=== PATIENT | female | born 1990 | race Caucasian/White ===

== ENCOUNTER 2016-07-18 23:33 | Emergency (ER) | payer BC, OTHER ==
[~2016-07-18 23:33] MED LIST: Donnatal Elixir 16.2 MG/5 ML UDCUP ONE; Sodium Chloride 0.9% 1,000 ML BAG ONE
[2016-07-19 01:18] LABS: Amphetamine Detected (NotDetected); Barbiturates Screen Not Detected (NotDetected); Benzodiazepine Screen Not Detected (NotDetected); Cocaine Metabolite Screen Not Detected (NotDetected); Medtox Control Line Valid? VALID (VALID); Methadone Not Detected (NotDetected); Methamphetamine Detected (NotDetected); Opiate Screen Not Detected (NotDetected); Oxycodone Screen Not Detected (NotDetected); Phencyclidine (PCP) Not Detected (NotDetected); THC/Cannabinoid Screen Detected (NotDetected); Tricyclic Screen Not Detected (NotDetected)
[2016-07-19 01:19] LABS: Bilirubin Small (Negative); Blood, Urine Trace (Negative); Clarity Slightly Cloudy (Clear); Glucose, Urine (Dipstick) Negative (Negative); Icto Negative (Negative); Leukocyte Negative (Negative); Nitrite Negative (Negative); Protein, Urine (Dipstick) > or equal to 300 mg/dL (Neg-Trace); Specific Gravity, Urine 1.031 (1.002-1.036)
[2016-07-19 01:20] LABS: Bacteria/HPF 1+ HPF (None Seen); Crystals/HPF RARE AMORPH URATES HPF (Negative); Renal Epithelial 0-3 HPF (0-3); Transitional Epithelial 0-3 HPF (0-3); Yeast-All Forms Rare HPF (None Seen)
[2016-07-19 01:24] LABS: ALT (SGPT) 14 U/L (8-55); AST (SGOT) 14 U/L (5-34); Albumin 4.5 g/dL (3.5-5.0); Alkaline Phosphatase 83 U/L (40-150); Anion Gap 16 mmol/L (10-20); BUN (Urea Nitrogen) 13 mg/dL (7.0-18.7); Bilirubin, Total 0.7 mg/dL (0.2-1.2); Calc. Creatinine Clearance 0 mL/min (70-130); Calcium 9.8 mg/dL (7.8-10.44); Carbon Dioxide 20 mmol/L (22-29); Chloride 108 mmol/L (98-107); Estimated GFR-MDRD Greater than 90; Globulin 2.8 g/dL (2.4-3.5); Glucose 113 mg/dL (70-105); Potassium 3.5 mmol/L (3.5-5.1); Protein, Total 7.3 g/dL (6.0-8.3); Sodium 140 mmol/L (136-145)
[2016-07-19 01:26] LABS: Alcohol Less than 10 mg/dL (Less than 10); Lipase 7 U/L (8-78); Salicylate Less than 8.0 mg/dL (15.0-30.0)
[2016-07-19 01:32] LABS: #Basophils 0.1 thou/uL (0.0-0.2); #Eosinphils 0.1 thou/uL (0.0-0.7); #Lymphocytes 2.5 thou/uL (1.20-3.40); #Monocytes 0.7 thou/uL (0.11-0.59); #Neutrophils 7.5 thou/uL (1.40-6.50); %Basophils 0.9 % (0.0-1.0); %Eosinophils 0.6 % (0.0-10.0); %Lymphocytes 22.9 % (21.0-51.0); %Monocytes 6.3 % (0.0-10.0); %Neutrophils 69.3 % (42.0-75.0); Hemoglobin 14.3 g/dL (12.0-16.0); Mean Corpuscular HGB CONC 34.8 g/dL (32.0-36.0); Mean Corpuscular Hemoglobin 30.5 pg (27.0-31.0); Mean Corpuscular Volume 87.8 fl (81.0-99.0); Mean Platelet Volume 10.3 fL (7.4-10.4); Platelet Count 270 thou/uL (130-400); RBC Distribution Width 12.9 % (11.5-14.5); Red Blood Cell (RBC) Count 4.69 mill/uL (4.20-5.40); White Blood Cell (WBC) Count 10.8 thou/uL (4.8-10.8)
[2016-07-19] MEDS ORDERED: Sulfameth/Trimethoprim DS 800-160mg TAB ONE (01:40)
[2016-07-19 01:41] LABS: Acetaminophen Less than 6.0 mcg/mL (6.0-30.0)
[2016-07-19] MEDS ORDERED: Donnatal Elixir 16.2 MG/5 ML UDCUP ONE (01:58)
[2016-07-19] MEDS ORDERED: Lidocaine Viscous Sol 2% 15 ml UD Cup ONE (01:59)
[2016-07-19] MEDS ORDERED: Mag-Al Plus 1200 MG/1200 MG/120 MG/30 ML UDCUP ONE (01:59)
--- NOTE | 2016-07-19 07:33 | RAD ---
PORTABLE CHEST: HISTORY: Mental status change. FINDINGS: Lungs are clear. Heart and mediastinum unremarkable. IMPRESSION: Unremarkable exam. POS: [facility]
== END 2016-07-19 04:29 | disposition home or self-care (01) ==
LOC: MADERS 23:33
DX: F60.7 Dependent personality disorder (principal); E86.0 Dehydration; N39.0 Urinary tract infection, site not specified; F17.210 Nicotine dependence, cigarettes, uncomplicated
CPT/HCPCS: 36415; 71010; 80053; 80306; 80307; 81001; 82150; 83690; 84443; 84702; 85025; 87086; 96360; J7050

== ENCOUNTER 2018-05-26 16:53 | Emergency (ER) | payer BC | END 2018-05-26 17:40 | disposition home or self-care (01) | LOC: MADERS 16:53 | DX: K04.7 Periapical abscess without sinus (principal); K02.9 Dental caries, unspecified; F17.210 Nicotine dependence, cigarettes, uncomplicated; Z79.01 Long term (current) use of anticoagulants | CPT/HCPCS: 99282 ==

== ENCOUNTER 2018-08-09 20:59 | Emergency (ER) | payer BC | END 2018-08-09 21:27 | disposition home or self-care (01) | LOC: MADERS 20:59 | DX: L02.416 Cutaneous abscess of left lower limb (principal); Z71.6 Tobacco abuse counseling; F17.210 Nicotine dependence, cigarettes, uncomplicated | CPT/HCPCS: 99406 ==

== ENCOUNTER 2018-10-17 21:03 | Emergency (ER) | payer BC, SELFPAY | END 2018-10-17 21:28 | disposition home or self-care (01) | LOC: MADERS 21:03 | DX: S49.91XA Unspecified injury of right shoulder and upper arm, initial encounter (principal); F32.9 Major depressive disorder, single episode, unspecified; F41.9 Anxiety disorder, unspecified; F17.210 Nicotine dependence, cigarettes, uncomplicated; Z79.899 Other long term (current) drug therapy; X50.9XXA Other and unspecified overexertion or strenuous movements or postures, initial encounter | CPT/HCPCS: 99281 ==

== ENCOUNTER 2019-10-17 02:29 | Emergency (ER) | payer SELFPAY ==
[2019-10-17] MEDS ORDERED: predniSONE 20 MG TAB ONE (02:51)
[2019-10-17] MEDS ORDERED: Bicillin LA 1.2 MILLION UNITS/2 ML SYRINGE ONE (02:51)
== END 2019-10-17 03:18 | disposition home or self-care (01) ==
LOC: MADERS 02:29
DX: J02.0 Streptococcal pharyngitis (principal); F17.210 Nicotine dependence, cigarettes, uncomplicated; F41.9 Anxiety disorder, unspecified; F32.9 Major depressive disorder, single episode, unspecified; Z79.899 Other long term (current) drug therapy
CPT/HCPCS: 96372; 99282; J0561; J7512

== ENCOUNTER 2020-09-28 09:48 | Emergency (ER) | payer MEDICAID, SELFPAY ==
[2020-09-28 17:48] LABS: SARS-CoV-2 PCR by NAA Not Detected (NotDetected)
== END 2020-09-28 10:25 | disposition home or self-care (01) ==
LOC: MADERS 09:48
DX: O99.891 Other specified diseases and conditions complicating pregnancy (principal); R09.81 Nasal congestion; R10.9 Unspecified abdominal pain; Z20.822 Contact with and (suspected) exposure to COVID-19; Z85.41 Personal history of malignant neoplasm of cervix uteri; O99.332 Smoking (tobacco) complicating pregnancy, second trimester; F17.210 Nicotine dependence, cigarettes, uncomplicated; Z3A.17 17 weeks gestation of pregnancy; Z79.899 Other long term (current) drug therapy
CPT/HCPCS: 99283; U0003; U0005

== ENCOUNTER 2020-12-03 09:21 | Outpatient (CLI) | payer MEDICAID | END 2020-12-03 09:22 | disposition home or self-care (01) | LOC: MADLAB 09:21 | PROVIDERS: ATTEND Family Medicine | DX: O09.893 Supervision of other high risk pregnancies, third trimester (principal) | CPT/HCPCS: 36415; 82951; 82952 ==

== ENCOUNTER 2021-05-24 00:29 | Emergency (ER) | payer MEDICAID, OTHER | END 2021-05-24 01:21 | disposition home or self-care (01) | LOC: MADERS 00:29 | DX: L30.9 Dermatitis, unspecified (principal); F17.210 Nicotine dependence, cigarettes, uncomplicated; Z79.899 Other long term (current) drug therapy | CPT/HCPCS: 99282 ==

== ENCOUNTER 2021-06-09 08:15 | Emergency (ER) | payer OTHER ==
[2021-06-09] MEDS ORDERED: Lidocaine 1%/Epinephrine 1:100K 10 ML VIAL ONE (08:38)
[2021-06-09] MEDS ORDERED: Bupivacaine PF 0.5% 30 ML VIAL ONE (08:38)
== END 2021-06-09 09:31 | disposition home or self-care (01) ==
LOC: MADERS 08:15
DX: K05.10 Chronic gingivitis, plaque induced (principal); K08.89 Other specified disorders of teeth and supporting structures; F17.210 Nicotine dependence, cigarettes, uncomplicated
CPT/HCPCS: 64400; S0020

== ENCOUNTER 2021-06-12 21:54 | Emergency (ER) | payer OTHER | END 2021-06-12 22:35 | disposition home or self-care (01) | LOC: MADERS 21:54 | DX: L02.413 Cutaneous abscess of right upper limb (principal); F17.290 Nicotine dependence, other tobacco product, uncomplicated | CPT/HCPCS: 99283 ==

== ENCOUNTER 2021-06-23 19:00 | Emergency (ER) | payer OTHER ==
[2021-06-23] MEDS ORDERED: Boostrix 0.5 ML (Tdap) VIAL ONE (19:17)
== END 2021-06-23 19:59 | disposition home or self-care (01) ==
LOC: MADERS 19:00
DX: S01.83XA Puncture wound without foreign body of other part of head, initial encounter (principal); F17.290 Nicotine dependence, other tobacco product, uncomplicated; W20.8XXA Other cause of strike by thrown, projected or falling object, initial encounter; Y93.H9 Activity, other involving exterior property and land maintenance, building and construction; Z23 Encounter for immunization; Z85.41 Personal history of malignant neoplasm of cervix uteri; Z79.899 Other long term (current) drug therapy
CPT/HCPCS: 90471; 90715; 99283

== ENCOUNTER 2021-07-31 18:05 | Emergency (ER) | payer OTHER ==
[2021-07-31 18:40] LABS: Bilirubin Small (Negative); Blood, Urine Negative (Negative); Glucose, Urine (Dipstick) Negative (Negative); Ketone, Urine Negative (Negative); Leukocyte Negative (Negative); Nitrite Negative (Negative); Protein, Urine (Dipstick) 30 mg/dL (Neg-Trace); Urobilinogen 0.2 mg/dL (Less than 2)
[2021-07-31 18:44] LABS: Clarity Hazy (Clear); Specific Gravity, Urine 1.046 (1.002-1.036)
[2021-07-31 18:45] LABS: Pregnancy Test - Urine (BHCG) Negative (Negative); Pregu Control Background? CLEAR/WHITE (CLR/WHITE); Pregu Control Bar Appear? YES (CONTROL BAR); Specific Gravity 1.046 (1.002-1.036)
[2021-07-31 18:48] LABS: Bacteria/HPF Rare-Few HPF (None Seen); Mucous/LPF 2+ LPF (<2+); RBC/HPF None Seen HPF (0-3); WBC/HPF None Seen HPF (0-3)
[2021-07-31] MEDS ORDERED: Clindamycin 150 MG CAP ONE (18:56)
[2021-07-31] MEDS ORDERED: Ondansetron ODT 4 MG TAB ONE (18:56)
== END 2021-07-31 19:05 | disposition home or self-care (01) ==
LOC: MADERS 18:05
DX: K04.7 Periapical abscess without sinus (principal); R11.2 Nausea with vomiting, unspecified; F17.290 Nicotine dependence, other tobacco product, uncomplicated
CPT/HCPCS: 81003; 81015; 81025; 99406; Q0162

== ENCOUNTER 2021-08-03 16:23 | Emergency (ER) | payer OTHER | END 2021-08-03 17:30 | disposition home or self-care (01) | LOC: MADERS 16:23 | DX: A08.4 Viral intestinal infection, unspecified (principal); F17.290 Nicotine dependence, other tobacco product, uncomplicated | CPT/HCPCS: 99283 ==

== ENCOUNTER 2021-10-06 13:36 | Emergency (ER) | payer MEDICAID, OTHER ==
[2021-10-06 15:01] LABS: SARS-CoV-2 NAA Rapid Test DETECTED (NotDetected)
== END 2021-10-06 14:06 | disposition home or self-care (01) ==
LOC: MADERS 13:36
DX: U07.1 COVID-19 (principal); F17.290 Nicotine dependence, other tobacco product, uncomplicated; Z85.41 Personal history of malignant neoplasm of cervix uteri
CPT/HCPCS: 99283; U0002

== ENCOUNTER 2022-01-27 14:47 | Emergency (ER) | payer OTHER ==
[2022-01-27 15:25] LABS: Hemoglobin 13.3 g/dL (12.0-16.0)
[2022-01-27 15:34] LABS: BHCG - Serum Negative (NEGATIVE); Pregs Control Background? CLEAR/WHITE (CLR/WHITE); Pregs Control Bar Appear? YES (CONTROL BAR)
== END 2022-01-27 15:53 | disposition home or self-care (01) ==
LOC: MADERS 14:47
DX: N93.9 Abnormal uterine and vaginal bleeding, unspecified (principal); F17.290 Nicotine dependence, other tobacco product, uncomplicated
CPT/HCPCS: 36415; 84703; 85014; 85018; 99284

== ENCOUNTER 2022-02-15 16:37 | Emergency (ER) | payer OTHER ==
[2022-02-15] MEDS ORDERED: Lidocaine 1% (PF) 30 ML VIAL ONE (18:23)
[2022-02-15] MEDS ORDERED: cefTRIAXone\\ROCEPHIN 1 GM VIAL ONE (18:23)
== END 2022-02-15 18:38 | disposition home or self-care (01) ==
LOC: MADERS 16:37
DX: J02.0 Streptococcal pharyngitis (principal); F17.290 Nicotine dependence, other tobacco product, uncomplicated
CPT/HCPCS: 87430; 96372; 99283; J0696; J2001

== ENCOUNTER 2022-05-10 22:34 | Emergency (ER) | payer OTHER ==
[2022-05-10] MEDS ORDERED: Aspirin Chewable 81 MG TAB ONE (23:10)
[2022-05-10 23:12] LABS: BHCG - Serum Negative (NEGATIVE); Pregs Control Background? CLEAR/WHITE (CLR/WHITE); Pregs Control Bar Appear? YES (CONTROL BAR)
[2022-05-10 23:22] LABS: ALT (SGPT) 15 U/L (8-55); AST (SGOT) 12 U/L (5-34); Alkaline Phosphatase 66 U/L (40-110); Anion Gap 15 mmol/L (10-20); BUN (Urea Nitrogen) 15 mg/dL (7.0-18.7); Bilirubin, Total Less than 0.2 mg/dL (0.2-1.2); Calc. Creatinine Clearance 0 mL/min (70-130); Calcium 10.3 mg/dL (7.8-10.44); Carbon Dioxide 22 mmol/L (22-29); Chloride 108 mmol/L (98-107); Estimated GFR 120; Globulin 3.1 g/dL (2.4-3.5); Glucose 155 mg/dL (70-105); Magnesium 2.1 mg/dL (1.6-2.6); Potassium 3.9 mmol/L (3.5-5.1); Protein, Total 7.1 g/dL (6.0-8.3); Sodium 141 mmol/L (136-145)
[2022-05-11 02:02] LABS: Troponin I Less than 0.010 ng/mL (< 0.028)
[2022-05-11 11:20] LABS: Mean Corpuscular HGB CONC 32.4 g/dL (32.0-36.0); Mean Corpuscular Hemoglobin 28.2 pg (27.0-31.0); Mean Platelet Volume 8.6 fL (7.4-10.4); Platelet Count 346 10x3/uL (130-400); RBC Distribution Width 13.1 % (11.5-14.5); Red Blood Cell (RBC) Count 4.61 mill/uL (4.20-5.40); White Blood Cell (WBC) Count 11.2 10x3/uL (4.8-10.8)
[2022-05-11 12:05] LABS: Band 4 % (5-11); Eosinophils 3 % (0-10); Lymphocytes 37 % (21-51); MDiff Complete? YES; Monocytes 8 % (0-10); Neutrophil 47 % (42-75); Platelet Morphology Comment Appears Adequate; RBC Morphology Normal; Reactive Lymphocytes 1 % (0-10)
== END 2022-05-11 02:11 | disposition home or self-care (01) ==
LOC: MADERS 22:34
DX: R07.89 Other chest pain (principal); E11.9 Type 2 diabetes mellitus without complications; E78.00 Pure hypercholesterolemia, unspecified; F17.290 Nicotine dependence, other tobacco product, uncomplicated; Z79.899 Other long term (current) drug therapy
CPT/HCPCS: 71045; 80053; 83735; 83880; 84484; 84703; 85025; 85379; 93005

== ENCOUNTER 2022-05-14 22:36 | Emergency (ER) | payer OTHER ==
[2022-05-14 23:01] LABS: Hemoglobin 12.5 g/dL (12.0-16.0)
[2022-05-14 23:21] LABS: BHCG - Serum Negative (NEGATIVE); Pregs Control Background? CLEAR/WHITE (CLR/WHITE); Pregs Control Bar Appear? YES (CONTROL BAR)
[2022-05-14] MEDS ORDERED: Ibuprofen 800 MG TAB ONE (23:45)
== END 2022-05-14 23:45 | disposition home or self-care (01) ==
LOC: MADERS 22:36
DX: N93.9 Abnormal uterine and vaginal bleeding, unspecified (principal); E11.9 Type 2 diabetes mellitus without complications; E78.5 Hyperlipidemia, unspecified; F17.290 Nicotine dependence, other tobacco product, uncomplicated
CPT/HCPCS: 84703; 85014; 85018; 99284

== ENCOUNTER 2022-06-01 22:41 | Emergency (ER) | payer OTHER ==
[2022-06-01] MEDS ORDERED: Ibuprofen 800 MG TAB ONE (23:23)
== END 2022-06-01 23:35 | disposition home or self-care (01) ==
LOC: MADERS 22:41
DX: S83.91XA Sprain of unspecified site of right knee, initial encounter (principal); E11.9 Type 2 diabetes mellitus without complications; E78.5 Hyperlipidemia, unspecified; F17.290 Nicotine dependence, other tobacco product, uncomplicated; Z79.84 Long term (current) use of oral hypoglycemic drugs; W19.XXXA Unspecified fall, initial encounter

== ENCOUNTER 2022-07-27 23:06 | Emergency (ER) | payer OTHER ==
[2022-07-27] MEDS ORDERED: Dexamethasone 4 MG TAB ONE (23:32)
== END 2022-07-27 23:55 | disposition home or self-care (01) ==
LOC: MADERS 23:06
DX: J03.90 Acute tonsillitis, unspecified (principal)
CPT/HCPCS: 87081; 87430; 99283; J8540

== ENCOUNTER 2022-12-21 12:26 | Emergency (ER) | payer OTHER, SELFPAY ==
[2022-12-21 13:52] LABS: Bilirubin Negative (Negative); Blood, Urine Negative (Negative); Clarity Clear (Clear); Glucose, Urine (Dipstick) Negative (Negative); Ketone, Urine Negative (Negative); Leukocyte Negative (Negative); Nitrite Negative (Negative); Pregnancy Test - Urine (BHCG) Negative (Negative); Pregu Control Background? CLEAR/WHITE (CLR/WHITE); Pregu Control Bar Appear? YES (CONTROL BAR); Protein, Urine (Dipstick) Negative (Neg-Trace); Urobilinogen 0.2 mg/dL (Less than 2); pH, Urine 7.5 (5.0-9.0)
[2022-12-21 13:56] LABS: Bacteria/HPF Rare-Few HPF (None Seen); CAUTI Indications for Culture Pelvic or flank pain; RBC/HPF 0-3 HPF (0-3); WBC/HPF 0-3 HPF (0-3)
[2022-12-21 13:58] LABS: Urine Culture Reflex No No
[2022-12-21] MEDS ORDERED: Cyclobenzaprine 10 MG TAB ONE (14:14)
[2022-12-21] MEDS ORDERED: Lidocaine 4% Patch ONE (14:14)
[2022-12-21] MEDS ORDERED: Ketorolac Tromethamine 30 MG/ML VIAL ONE (14:14)
== END 2022-12-21 15:35 | disposition home or self-care (01) ==
LOC: MADERS 12:26
DX: M54.42 Lumbago with sciatica, left side (principal); E11.9 Type 2 diabetes mellitus without complications; F17.290 Nicotine dependence, other tobacco product, uncomplicated; E78.5 Hyperlipidemia, unspecified; Z79.84 Long term (current) use of oral hypoglycemic drugs; Z79.899 Other long term (current) drug therapy
CPT/HCPCS: 81001; 81025; 85379; 86140; 96372; 99283; J1885

== ENCOUNTER 2023-02-28 18:00 | Emergency (ER) | payer SELFPAY ==
[2023-02-28 19:19] LABS: Bacteria/HPF 1+ HPF (None Seen); Bilirubin Negative (Negative); Blood, Urine Negative (Negative); CAUTI Indications for Culture Pelvic or flank pain; Clarity Hazy (Clear); Glucose, Urine (Dipstick) Negative (Negative); Ketone, Urine Negative (Negative); Leukocyte Negative (Negative); Nitrite Negative (Negative); Protein, Urine (Dipstick) Negative (Neg-Trace); RBC/HPF None Seen HPF (0-3); Specific Gravity, Urine 1.026 (1.005-1.030); Squamous Epithelial 21-50 HPF (0-3); Urobilinogen 0.2 mg/dL (Less than 2); pH, Urine 5.5 (5.0-9.0)
[2023-02-28 19:20] LABS: Pregnancy Test - Urine (BHCG) Negative (Negative); Pregu Control Background? CLEAR/WHITE (CLR/WHITE); Pregu Control Bar Appear? YES (CONTROL BAR); Specific Gravity 1.026 (1.002-1.036); Urine Culture Reflex No No
[2023-02-28 19:38] LABS: #Basophils 0.1 thou/uL (0.0-0.2); #Eosinphils 0.3 thou/uL (0.0-0.7); #Lymphocytes 2.3 thou/uL (1.20-3.40); #Monocytes 0.6 thou/uL (0.11-0.59); #Neutrophils 4.9 thou/uL (1.40-6.50); %Basophils 1.3 % (0.0-1.0); %Eosinophils 3.3 % (0.0-10.0); %Lymphocytes 27.7 % (21.0-51.0); %Monocytes 7.1 % (0.0-10.0); %Neutrophils 60.7 % (42.0-75.0); Hematocrit 42.5 % (36.0-47.0); Hemoglobin 13.4 g/dL (12.0-16.0); Mean Corpuscular HGB CONC 31.6 g/dL (32.0-36.0); Mean Corpuscular Hemoglobin 28.5 pg (27.0-31.0); Mean Corpuscular Volume 90.2 fl (78.0-98.0); Mean Platelet Volume 10.4 fL (7.4-10.4); Platelet Count 291 10x3/uL (130-400); RBC Distribution Width 13.4 % (11.5-14.5); Red Blood Cell (RBC) Count 4.71 mill/uL (4.20-5.40); White Blood Cell (WBC) Count 8.1 10x3/uL (4.8-10.8)
[2023-02-28 19:58] LABS: ALT (SGPT) 23 U/L (8-55); AST (SGOT) 17 U/L (5-34); Alkaline Phosphatase 73 U/L (40-110); Anion Gap 14 mmol/L (10-20); BUN (Urea Nitrogen) 10 mg/dL (7.0-18.7); Bilirubin, Total Less than 0.2 mg/dL (0.2-1.2); Calc. Creatinine Clearance 0 mL/min (70-130); Calcium 9.8 mg/dL (7.8-10.44); Carbon Dioxide 23 mmol/L (22-29); Chloride 108 mmol/L (98-107); Estimated GFR 121; Globulin 3.1 g/dL (2.4-3.5); Glucose 151 mg/dL (70-105); Potassium 4.2 mmol/L (3.5-5.1); Protein, Total 7.1 g/dL (6.0-8.3); Sodium 141 mmol/L (136-145)
[2023-02-28] MEDS ORDERED: Ketorolac Tromethamine 30 MG (1 mL) VIAL ONE (22:33)
== END 2023-02-28 22:49 | disposition home or self-care (01) ==
LOC: MADERS 18:00
DX: K63.89 Other specified diseases of intestine (principal); E11.9 Type 2 diabetes mellitus without complications; E78.5 Hyperlipidemia, unspecified; F17.290 Nicotine dependence, other tobacco product, uncomplicated; Z79.84 Long term (current) use of oral hypoglycemic drugs; Z79.899 Other long term (current) drug therapy
CPT/HCPCS: 36415; 74177; 80053; 81001; 81025; 85025; 96374; J1885